=== PATIENT | female | born 1975 | race Caucasian/White ===

== ENCOUNTER 2016-11-24 06:33 | Day surgery (SDC) | payer OTHER ==
[2016-11-19 17:11] VITALS: BMI 22.3
[2016-11-24] MEDS ORDERED: KETOROLAC TROMETHAMINE 30 MG/1 ML VIAL ONE (07:30)
[2016-11-24] MEDS ORDERED: PROPOFOL 20 ML ONE ×3 (07:30)
[2016-11-24] MEDS ORDERED: ceFAZolin SODIUM 1 GM VIAL ONE (07:30)
[2016-11-24] MEDS ORDERED: DEXAMETHASONE SOD PHOSPHATE 4 MG/1 ML VIAL ONE (07:30)
[2016-11-24] MEDS ORDERED: SODIUM CHLORIDE 0.9% P/F 10 ML VIAL IJ ONE (07:30)
[2016-11-24] MEDS ORDERED: MIDAZOLAM HCL 2 MG/2 ML SINGLE DOSE VIAL ONE (07:31)
[2016-11-24] MEDS ORDERED: LIDOCAINE 1%/EPI 1:100000 (50 ML MULTI DOSE VIAL) ONE (07:34)
[2016-11-24] MEDS ORDERED: ePHEDrine SULFATE 50 MG/1 ML AMPULE ONE ×2 (07:40)
--- NOTE | 2016-11-24 08:03 | HP ---
History & Physical Update - History History: No Change - Physical Physical: No Change - Assessment Assessment: No Change - Plan Plan: No Change
[2016-11-24] MEDS ORDERED: LIDOCAINE 1%/EPI 1:100000 (20 ML MULTI DOSE VIAL) INF ONE (08:20)
--- NOTE | 2016-11-24 09:01 | OP ---
Operative Note - Note: Operative Date: 11/24/16 Pre-Operative Diagnosis: midback soft tissue mass Operation: Excision, midback soft tissue mass Findings: 1 cm cystic subcutaneous mass Post-Operative Diagnosis: Same as Pre-op Surgeon: Rusty Mccracken Anesthesiologist/COKE STILL CLEANER: Marco Antonio Trent Jr. Anesthesia: Local (with sedation), MAC Estimated Blood Loss (mls): 1 Operative Report Dictated: Yes
--- NOTE | 2016-11-24 09:08 | OP ---
DATE OF OPERATION: 11/24/2016 PROCEDURE: Excisional biopsy of mid-back soft tissue mass. PREOPERATIVE DIAGNOSIS: Mid-back soft tissue mass. POSTOPERATIVE DIAGNOSIS: Mid-back soft tissue mass. SURGEON: Rusty Mccracken MD ANESTHESIA: Local with sedation. FINDINGS ON PROCEDURE: This is a 41-year-old female who presents with a 1-cm mid-back midline soft tissue mass associated with pain or tenderness on pressure. So, patient was advised excisional biopsy of the mass and consent was obtained after discussing the risks, benefits, and alternatives of the procedure. Patient was brought to the operating room and placed in right lateral decubitus position. The operative site was prepped and draped in the usual sterile fashion. Intravenous sedation was given by anesthesia team. Using lidocaine 1% with epinephrine, field block anesthesia was administered. A 2 x 0.5 cm elliptical incision was made over the mass using scalpel blade No. 15 with resection carried down to the subcutaneous tissue. Further resection using combined Bovie cautery and IV scissors was done until the mass together with the ellipse of skin was completely excised. The wound edges were undermined about 0.5 cm on each side. The wound was then closed with interrupted Vicryl 3-0 sutures for the dermis and continuous Biosyn 4-0 suture for the subcuticular layer. The wound closure was reinforced with Steri-Strips, then covered with pressure dressing. The patient was transferred to the post-anesthesia care unit in satisfactory condition. ESTIMATED BLOOD LOSS: About 1 mL. WOUND CLASS: Clean. Avi [id number]
[2016-11-24] MEDS ORDERED: oxyCODONE HCL 5 MG TABLET PO PRN (09:31)
[2016-11-24] MEDS ORDERED: PROMETHAZINE HCL 25 MG/1 ML VIAL IVPUSH PRN (09:31)
[2016-11-24] MEDS ORDERED: ONDANSETRON 4 MG/2 ML VIAL IVPUSH PRN (09:31)
[2016-11-24 09:35] VITALS: TEMP 98
[2016-11-24 11:48] VITALS: BP 100/50; PULSE 70
--- NOTE | 2016-11-25 13:54 | PATH ---
Surgical Pathology Report Patient Name: ERIK CALI [facility]. Rec. #: [id number] /Age/Gender: 1975 (Age: 41) / F Account: [id number] Location: [facility] SURGICAL Taken: 11/24/2016 Received: 11/24/2016 Reported: 11/25/2016 Physicians: Rusty Mccracken M.D. Specimen(s) Received MASS OF MID UPPER BACK Clinical History Mid-upper back mass Final Diagnosis SKIN AND SOFT TISSUE, MID UPPER BACK, MASS, EXCISION: EPIDERMAL INCLUSION CYST. Electronically Signed Fracisco Oates M.D. Gross Description Received in formalin, labeled "mid upper back mass" is a 1.0 x 0.9 x 0.4 cm pierce-yellow soft tissue mass which is surfaced by a 1.0 x 0.2 cm pierce, elliptical, unremarkable portion of skin. The specimen is trisected and entirely submitted in one cassette. 11/24/201611/24/2016
== END 2016-11-24 11:00 | disposition home or self-care (01) ==
LOC: JASU-SURG 06:33
PROVIDERS: ATTEND Surgery
PROC: 0HB6XZZ Excision of Back Skin, External Approach (ICD-10-PCS; 2016-11-24)
PROC: 0JQ70ZZ Repair Back Subcutaneous Tissue and Fascia, Open Approach (ICD-10-PCS; principal; 2016-11-24 08:00)
DX: L72.0 Epidermal cyst (principal)
CPT/HCPCS: 84703; 88307-TC; 94760

== ENCOUNTER → 2017-03-09 | Emergency (ER) | payer OTHER ==
[2017-03-09 16:49] VITALS: TEMP 98.3; BMI 24.0
--- NOTE | 2017-03-09 16:49 | PDOC ---
Rapid Medical Evaluation Time Seen by Provider: 03/09/17 16:35 Medical Evaluation: Allergies Allergy/AdvReac Type Severity Reaction Status Date / Time No Known Drug Allergies Allergy Verified 11/24/16 06:49 I have performed a brief in-person evaluation of this patient. The patient presents with a chief complaint of: pain under left breast and epigastric area that is sharp x 4 days. Pertinent physical exam findings: Epigastric TTP I have ordered the following: UA/hcg The patient will proceed to the ED for further evaluation.
[2017-03-09 17:15] LABS: URINE APPEARANCE CLOUDY; URINE BILIRUBIN NEGATIVE (NEGATIVE); URINE COLOR YELLOW; URINE GLUCOSE (UA) NEGATIVE (NEGATIVE); URINE KETONE NEGATIVE (NEGATIVE); URINE LEUK ESTERASE NEGATIVE (NEGATIVE); URINE NITRITE NEGATIVE (NEGATIVE); URINE PROTEIN NEGATIVE (NEGATIVE); URINE UROBILINOGEN NEGATIVE E.U./dl (0.2-1.0)
[2017-03-09 17:52] LABS: URINE BLOOD 1+ (NEGATIVE)
[2017-03-09 17:59] LABS: BASOPHIL 0.6 % (0-2.0); EOSINOPHIL 1.1 % (0-4.5); MCH 30.4 pg (25.7-33.7); MCHC 32.7 g/dl (32.0-36.0); MEAN CELL VOLUME 92.9 fl (80-96); MEAN PLT VOLUME 8.7 fl (7.5-11.1); NEUTROPHILS 49.4 % (42.8-82.8); PLATELET COUNT 233 K/MM3 (134-434); RDW 14.2 % (11.6-15.6); WHITE BLOOD COUNT 5.5 K/mm3 (4.0-10.0)
[2017-03-09 18:07] LABS: URINE BACTERIA RARE /hpf (NONE SEEN); URINE RBC 1 /hpf (0-3); URINE WBC 2 /hpf (3-5)
[2017-03-09 18:15] LABS: ALBUMIN 3.9 g/dl (3.4-5.0); ANION GAP 8 (8-16); BILIRUBIN,TOTAL 0.2 mg/dL (0.2-1.0); CO2 29 mmol/L (21-32); CREATININE 0.8 mg/dL (0.55-1.02); GLUCOSE,RANDOM 94 mg/dL (74-106); SGOT/AST 222 U/L (15-37); SGPT/ALT 83 U/L (12-78); TOT PROT 7.2 g/dl (6.4-8.2)
[2017-03-09 18:16] LABS: ALK PHOS 46 U/L (45-117)
--- NOTE | 2017-03-09 19:31 | PDOC ---
History of Present Illness <Migdalia Yeboah Yessenia - Last Filed: 03/09/17 19:31> - General History Source: Patient Exam Limitations: No Limitations - History of Present Illness Initial Comments: 42 yo F with a PMHx of josé antonio gunn 14 years ago presents with constant, sharp epigastric pain for four days. Patient reports pain was sudden onset and has progressively gotten worse. Patient reports pain is exacerbated by lying down and movement and has no alleviating factors. Patient denies vomiting, diarrhea and constipation but endorses mild nausea and chills for one day. Patient also states pain is worse at night. Denies blood in stool. Patient also endorses mild lightheadedness and dizziness for four days. Denies chest pain. Patient also notes that the last four days shes been going to the bathroom more frequently. Patient just finished her period 2 days ago and states that it was normal. PCP: Anderson Diaz <Marsha Ferro - Last Filed: 03/09/17 20:36> - General Chief Complaint: Pain Stated Complaint: ABDOMINAL PAIN Time Seen by Provider: 03/09/17 16:35 Past History - Past Medical History Anemia: No Asthma: No Cancer: No Cardiac Disorders: No CVA: No COPD: No CHF: No Dementia: No Diabetes: No GI Disorders: No Disorders: No HTN: No Hypercholesterolemia: No Liver Disease: No Seizures: No Thyroid Disease: No - Surgical History Abdominal Surgery: Yes (ABDOMINOPLASTY) Appendectomy: No Cardiac Surgery: No Cholecystectomy: No Lung Surgery: No Neurologic Surgery: No Orthopedic Surgery: No - Psycho/Social/Smoking Cessation Hx Suicidal Ideation: No Smoking History: Never smoked Have you smoked in the past 12 months: No Information on smoking cessation initiated: No Hx Alcohol Use: Yes (SOCIAL) Drug/Substance Use Hx: No Substance Use Type: Alcohol Hx Substance Use Treatment: No <ObinnaJose Manuelangel Casas - Last Filed: 03/09/17 19:31> <Marsha Ferro - Last Filed: 03/09/17 20:36> - Past Medical History Allergies/Adverse Reactions: Allergies Allergy/AdvReac Type Severity Reaction Status Date / Time No Known Drug Allergies Allergy Verified 03/09/17 16:49 Home Medications: Ambulatory Orders Multivitamins [Tab-A-Vit -] 1 tab PO DAILY 11/19/16 Review of Systems - Review of Systems Able to Perform ROS?: Yes Comments:: CONSTITUTIONAL: +chills Absent: fever, diaphoresis, generalized weakness, malaise, loss of appetite HEENT: Absent: rhinorrhea, nasal congestion, throat pain, throat swelling, difficulty swallowing, mouth swelling, ear pain, eye pain, visual Changes CARDIOVASCULAR: +mild lightheadedness Absent: chest pain, syncope, palpitations , irregular heart rate, peripheral edema RESPIRATORY: Absent: cough, shortness of breath, dyspnea with exertion, orthopnea, wheezing, stridor, hemoptysis GASTROINTESTINAL: +Epigastric pain, mild nausea, Absent: abdominal distension, vomiting, diarrhea, constipation, melena, hematochezia GENITOURINARY: +frequency Absent: dysuria, urgency, hesitancy, hematuria, flank pain, genital pain MUSCULOSKELETAL: Absent: myalgia, arthralgia, joint swelling SKIN: Absent: rash , itching, pallor HEMATOLOGIC/IMMUNOLOGIC: Absent: easy bleeding, easy bruising, lymphadenopathy, frequent infections ENDOCRINE: Absent: unexplained weight gain, unexplained weight loss, heat intolerance, cold intolerance NEUROLOGIC: Absent: headache, focal weakness or paresthesia, dizziness, unsteady gait, seizure, mental status changes, bladder or bowel incontinence PSYCHIATRIC: Absent: anxiety, depression, suicidal or homicidal ideation, hallucination <Marsha Ferro - Last Filed: 03/09/17 20:36> *Physical Exam - Vital Signs Last Vital Signs Temp Pulse Resp BP Pulse Ox 98.3 F 75 18 138/84 98 03/09/17 16:45 03/09/17 16:45 03/09/17 16:45 03/09/17 16:45 03/09/17 16:45 <Migdalia Yeboah - Last Filed: 03/09/17 19:31> - Vital Signs Last Vital Signs Temp Pulse Resp BP Pulse Ox 98.3 F 72 20 132/78 100 03/09/17 16:45 03/09/17 19:36 03/09/17 19:36 03/09/17 19:36 03/09/17 19:36 - Physical Exam Comments: GENERAL: Well developed, well nourished. Awake and alert. No acute distress. HEENT: Normocephalic, atraumatic. PERRLA, EOMI. No conjunctival pallor. Sclera are non- icteric. Moist mucous membranes. Oropharynx is clear. NECK: Supple. Full ROM. No JVD. Carotid pulses 2+ and symmetric, without bruits. No thyromegaly. No lymphadenopathy. CARDIOVASCULAR: Regular rate and rhythm. No murmurs, rubs, or gallops. Distal pulses are 2+ and symmetric. PULMONARY: No evidence of respiratory distress. Lungs clear to auscultation bilaterally. No wheezing, rales or rhonchi. ABDOMINAL: Soft. Tenderness to epigastric region. Non-distended. No rebound or guarding. No organomegaly. Normoactive bowel sounds. MUSCULOSKELETAL Normal range of motion at all joints. No bony deformities or tenderness. No CVA tenderness. EXTREMITIES: No cyanosis. No clubbing. No edema. No calf tenderness. SKIN: Warm and dry. Normal capillary refill. No rashes. No jaundice. NEUROLOGICAL: Alert, awake, appropriate. Cranial nerves 2-12 intact. No deficits to light touch and temperature in face, upper extremities and lower extremities. No motor deficits in the in face, upper extremities and lower extremities. Normoreflexic in the upper and lower extremities. Normal speech. Toes are down- going bilaterally. Gait is normal without ataxia. PSYCHIATRIC: Cooperative. Good eye contact. Appropriate mood and affect. <Marsha Ferro - Last Filed: 03/09/17 20:36> ED Treatment Course - LABORATORY CBC & Chemistry Diagram: 03/09/17 17:44 03/09/17 17:44 - ADDITIONAL ORDERS Additional order review: Laboratory Results 03/09/17 03/09/17 17:44 16:48 Sodium 141 Potassium 3.8 Chloride 104 Carbon Dioxide 29 Anion Gap 8 BUN 10 Creatinine 0.8 Creat Clearance w eGFR > 60 Random Glucose 94 Calcium 9.0 Total Bilirubin 0.2 AST 222 H ALT 83 H Alkaline Phosphatase 46 Total Protein 7.2 Albumin 3.9 Lipase 164 Urine Color Yellow Urine Appearance Cloudy Urine pH 8.0 Urine Protein Negative Urine Glucose (UA) Negative Urine Ketones Negative Urine Blood 1+ H Urine Nitrite Negative Urine Bilirubin Negative Urine Urobilinogen Negative Ur Leukocyte Esterase Negative Urine RBC 1 Urine WBC 2 Ur Epithelial Cells Rare Urine Bacteria Rare Urine HCG, Qual Negative 03/09/17 17:44 RBC 4.34 MCV 92.9 MCHC 32.7 RDW 14.2 MPV 8.7 Neutrophils % 49.4 Lymphocytes % 41.2 H Monocytes % 7.7 Eosinophils % 1.1 Basophils % 0.6 - RADIOLOGY Radiology Studies Ordered: Category Date Time Status ABDOMEN US [US] Stat Ultrasound 03/09/17 17:13 Completed <Migdalia Yeboah - Last Filed: 03/09/17 19:31> - LABORATORY CBC & Chemistry Diagram: 03/09/17 17:44 03/09/17 17:44 - ADDITIONAL ORDERS Additional order review: Laboratory Results 03/09/17 03/09/17 17:44 16:48 Sodium 141 Potassium 3.8 Chloride 104 Carbon Dioxide 29 Anion Gap 8 BUN 10 Creatinine 0.8 Creat Clearance w eGFR > 60 Random Glucose 94 Calcium 9.0 Total Bilirubin 0.2 AST 222 H ALT 83 H Alkaline Phosphatase 46 Total Protein 7.2 Albumin 3.9 Lipase 164 Urine Color Yellow Urine Appearance Cloudy Urine pH 8.0 Urine Protein Negative Urine Glucose (UA) Negative Urine Ketones Negative Urine Blood 1+ H Urine Nitrite Negative Urine Bilirubin Negative Urine Urobilinogen Negative Ur Leukocyte Esterase Negative Urine RBC 1 Urine WBC 2 Ur Epithelial Cells Rare Urine Bacteria Rare Urine HCG, Qual Negative 03/09/17 17:44 RBC 4.34 MCV 92.9 MCHC 32.7 RDW 14.2 MPV 8.7 Neutrophils % 49.4 Lymphocytes % 41.2 H Monocytes % 7.7 Eosinophils % 1.1 Basophils % 0.6 <Marsha Ferro - Last Filed: 03/09/17 20:36> Medical Decision Making - Medical Decision Making 03/09/17 19:30 42-year-old female, slightly overweight, presents with 4 days of epigastric pain and tenderness to palpation. No vomiting, no fever, no chills Review of her CBC shows no leukocytosis, no anemia Review of her chemistry studies showed an elevated AST L today, but no elevated total bili Gallbladder ultrasound showed a contracted gallbladder and it was a very limited study Patient elected to go home and follow-up with her doctor Dr. Anderson Diaz. She will take her lab work and imaging study results with her Patient advised to avoid fatty or fried foods. Impression cholecystitis with limited ultrasound study <Migdalia Yeboah - Last Filed: 03/09/17 19:31> *DC/Admit/Observation/Transfer <Migdalia Yeboah - Last Filed: 03/09/17 19:31> - Attestations Scribe Attestion: Documentation prepared by Marsha Ferro, acting as medical office receptionist for Migdalia Yeboah MD/DO. <Marsha Ferro - Last Filed: 03/09/17 20:36> Diagnosis at time of Disposition: Epigastric abdominal pain, Elevated liver enzymes - Discharge Dispostion Disposition: HOME Condition at time of disposition: Stable - Referrals Referrals: Anderson Diaz MD [Primary Care Provider] - - Patient Instructions Printed Discharge Instructions: DI for Epigastric Pain Additional Instructions: please avoid fatty ,fried foods When you follow up with your doctor,please take your lab work and Ultrasound results with you If you develop fever,increasing pain,vomiting please return to the emergency department
[2017-03-09 19:37] VITALS: BP 132/78; PULSE 72
== END | disposition home or self-care (01) ==
LOC: JER 16:24
DX: R10.13 Epigastric pain (principal); R79.89 Other specified abnormal findings of blood chemistry
CPT/HCPCS: 36415; 76700-TC; 80053; 81003; 81015; 83690; 84703; 85025; 99282-25

== ENCOUNTER 2018-06-28 18:34 | Emergency (ER) | payer OTHER ==
[2018-06-28 18:53] VITALS: BP 135/84; PULSE 72; TEMP 98.6; BMI 23.6
--- NOTE | 2018-06-28 19:17 | PDOC ---
History of Present Illness - General History Source: Patient Exam Limitations: No Limitations <Varun Mejia - Last Filed: 06/28/18 20:14> - General History Source: Patient Exam Limitations: No Limitations - History of Present Illness Initial Comments: 06/28/18 20:26 The patient is a 43 year old female with no significant PMH who presents to the emergency department with right sided head pain since yesterday. The patient reports that she was at home when her head pain began in the morning yesterday. She describes her head pain as a worsening sharp constant pain. She states that the area is sensitive to touch but she feels the pain inside as well. The patient denies any head injury, photophobia, flashing lights. She states that she took tylenol and naproxen with no apparent relief. The patient denies any other symptoms. She denies any fever, chills, nausea, vomiting, diarrhea, constipation or urinary symptoms. She denies any chest pain, shortness of breath, or dizziness. The patient denies any other complaints. <Tayler Roberson - Last Filed: 06/28/18 20:27> - General Chief Complaint: Pain Stated Complaint: RIGHT POSTERIOR HEAD PAIN Time Seen by Provider: 06/28/18 18:39 Past History - Past Medical History Anemia: No Asthma: No Cancer: No Cardiac Disorders: No CVA: No COPD: No CHF: No Dementia: No Diabetes: No GI Disorders: No Disorders: No HTN: No Hypercholesterolemia: No Liver Disease: No Seizures: No Thyroid Disease: No - Surgical History Abdominal Surgery: Yes (ABDOMINOPLASTY) Appendectomy: No Cardiac Surgery: No Cholecystectomy: No Lung Surgery: No Neurologic Surgery: No Orthopedic Surgery: No - Suicide/Smoking/Psychosocial Hx Smoking History: Never smoked Have you smoked in the past 12 months: No Information on smoking cessation initiated: No Hx Alcohol Use: No Drug/Substance Use Hx: No Substance Use Type: None Hx Substance Use Treatment: No <Varun Mejia - Last Filed: 06/28/18 20:14> <Tayler Roberson - Last Filed: 06/28/18 20:27> - Past Medical History Allergies/Adverse Reactions: Allergies Allergy/AdvReac Type Severity Reaction Status Date / Time No Known Drug Allergies Allergy Verified 06/28/18 18:36 Home Medications: Ambulatory Orders Naproxen 500 mg PO BID PRN #20 tablet 06/28/18 Review of Systems - Review of Systems Able to Perform ROS?: Yes Comments:: 06/28/18 20:26 GENERAL/CONSTITUTIONAL: No fever or chills. No weakness. HEAD, EYES, EARS, NOSE AND THROAT: (+)right sided head pain. No change in vision. No ear pain or discharge. No sore throat. CARDIOVASCULAR: No chest pain or shortness of breath. RESPIRATORY: No cough, wheezing, or hemoptysis. GASTROINTESTINAL: No nausea, vomiting, diarrhea or constipation. GENITOURINARY: No dysuria, frequency, or change in urination. MUSCULOSKELETAL: No joint or muscle swelling or pain. No neck or back pain. SKIN: No rash NEUROLOGIC: No headache, vertigo, loss of consciousness, or change in strength/ sensation. ENDOCRINE: No increased thirst. No abnormal weight change. HEMATOLOGIC/LYMPHATIC: No anemia, easy bleeding, or history of blood clots. ALLERGIC/IMMUNOLOGIC: No hives or skin allergy. <Tayler Roberson - Last Filed: 06/28/18 20:27> *Physical Exam - Vital Signs Last Vital Signs Temp Pulse Resp BP Pulse Ox 98.6 F 72 16 135/84 100 06/28/18 18:35 06/28/18 18:35 06/28/18 18:35 06/28/18 18:35 06/28/18 18:35 <Varun Mejia - Last Filed: 06/28/18 20:14> - Vital Signs Last Vital Signs Temp Pulse Resp BP Pulse Ox 98.6 F 72 16 135/84 100 06/28/18 18:35 06/28/18 18:35 06/28/18 18:35 06/28/18 18:35 06/28/18 18:35 - Physical Exam Comments: 06/28/18 20:26 GENERAL: Awake, alert, and fully oriented, in no acute distress HEAD: (+)mild tenderness to right posterior scalp. No signs of trauma EYES: PERRLA, EOMI, sclera anicteric, conjunctiva clear ENT: Auricles normal inspection, hearing grossly normal, nares patent, oropharynx clear without exudates. Moist mucosa NECK: Normal ROM, supple, no lymphadenopathy, JVD, or masses EXTREMITIES: Normal range of motion, no edema. No clubbing or cyanosis. No cords, erythema, or tenderness NEUROLOGICAL: 5/5 strength intact. Cranial nerves II through XII grossly intact. Normal speech, normal gait SKIN: Warm, Dry, normal turgor, no rashes or lesions noted. <Tayler Roberson - Last Filed: 06/28/18 20:27> ED Treatment Course - ADDITIONAL ORDERS Additional order review: Laboratory Results 06/28/18 18:57 Urine HCG, Qual Negative - RADIOLOGY Radiology Studies Ordered: Category Date Time Status HEAD CT WITHOUT CONTRAST [CT] Stat CT Scan 06/28/18 18:49 Ordered <Varun Mejia - Last Filed: 06/28/18 20:14> - ADDITIONAL ORDERS Additional order review: Laboratory Results 06/28/18 18:57 Urine HCG, Qual Negative <Tayler Roberson - Last Filed: 06/28/18 20:27> Medical Decision Making - Medical Decision Making 06/28/18 19:15 A portion of this note was documented by scribe services under my direction. I have reviewed the details of the note, within reason, and agree with the documentation with the following case summary and management plan written by me. Patient treated in the ED. Nursing notes are reviewed and incorporated into the medical decision-making. Vital signs reviewed. Peripheral IV access obtained by the nurse, laboratory studies are drawn and sent, reviewed and interpreted by myself. Vital Signs Temp Pulse Resp BP Pulse Ox 98.6 F 72 16 135/84 100 06/28/18 18:35 06/28/18 18:35 06/28/18 18:35 06/28/18 18:35 06/28/18 18:35 43-year-old healthy female with no medical history presents with right posterior scalp pain since yesterday. Reported gradual onset of sharp pain reproducible palpation. Patient also developed a right-sided headache that is constant but with the Tylenol and naproxen. She denies any neurological deficits. Denies any recent illnesses, fevers, chills. Denies neck stiffness or pain. She has no family history or personal history of migraines or headache history. Came in because she was concerned about her headache. We'll obtain head CT to rule out intracranial pathology per for some headache. However, suspect this is likely secondary to some mild scalp information. There is no evidence of infection. I advised patient if the head CT is negative, that she should try NSAIDs for next several days and follow up with a neurologist. 06/28/18 20:[address] negative. Pt feels reassurred. She will follow up with a neurologist. I discussed the physical exam findings, ancillary test results and final diagnoses with the patient. I answered all of the patient's questions. The patient was satisfied with the care received and felt comfortable with the discharge plan and treatment plan. The patient will call their primary care physician within 24 hours to arrange follow-up and will return to the Emergency Department with any new, persistant or worsening symptoms. <Varun Mejia - Last Filed: 06/28/18 20:14> *DC/Admit/Observation/Transfer - Discharge Dispostion Decision to Admit order: No <Varun Mejia - Last Filed: 06/28/18 20:14> - Attestations Scribe Attestion: 06/28/18 20:26 Documentation prepared by Tayler Roberson, acting as director medical safety for Varun Mejia MD. <Tayler Roberson - Last Filed: 06/28/18 20:27> Diagnosis at time of Disposition: Headache Qualifiers: Headache type: unspecified Headache chronicity pattern: acute headache Intractability: not intractable Qualified Code(s): R51 - Headache - Discharge Dispostion Disposition: HOME Condition at time of disposition: Stable - Prescriptions Prescriptions: Naproxen 500 mg PO BID PRN #20 tablet PRN Reason: Pain - Referrals Referrals: Sudeep Joseph MD [Staff Physician] - Liam Huerta MD [Staff Physician] - Marquez Estrada DO [Staff Physician] - - Patient Instructions Printed Discharge Instructions: DI for Headache Additional Instructions: Your CT head is negative for acute findings. Take 500 mg naproxen every 12 hours as needed for headache. Please follow up with a neurologist. Call to schedule an appointment.
[2018-06-28] MEDS ORDERED: NAPROXEN 500 MG TABLET (FP) PO ONE (20:18)
[2018-06-28] MEDS ORDERED: IBUPROFEN 600 MG TABLET (FP) PO ONE ×2 (20:24→20:45)
== END 2018-06-28 20:49 | disposition home or self-care (01) ==
LOC: FER 18:34
DX: R51 Headache (principal)
CPT/HCPCS: 70450-TC; 84703; 99281-25

== ENCOUNTER 2018-11-17 16:47 | Emergency (ER) | payer OTHER ==
[2018-11-17 16:56] VITALS: BP 130/63; PULSE 79; TEMP 98.2; BMI 24.3
--- NOTE | 2018-11-17 16:59 | PDOC ---
Rapid Medical Evaluation Chief Complaint: Pain, Acute Time Seen by Provider: 11/17/18 16:55 Medical Evaluation: Allergies Allergy/AdvReac Type Severity Reaction Status Date / Time No Known Drug Allergies Allergy Verified 11/17/18 16:53 11/17/18 16:55 I have performed a brief in-person evaluation of this patient. The patient presents with a chief complaint of: Patient present with complains of pain to left shoulder, left elbow and left knee s/p slip and fall on ice today. Denies hitting head or LOC Pertinent physical exam findings: mild tenderness to anterior patella of left knee, AC joint of left shoulder and olecranon of left elbow. I have ordered the following: x-ray of left knee, elbow and shoulder The patient will proceed to the ED for further evaluation. Discharge Disposition - Diagnosis Fall Qualifiers: Encounter type: initial encounter Qualified Code(s): W19.XXXA - Unspecified fall, initial encounter Left knee injury Qualifiers: Encounter type: initial encounter Qualified Code(s): S89.92XA - Unspecified injury of left lower leg, initial encounter Injury of left shoulder Qualifiers: Encounter type: initial encounter Qualified Code(s): S49.92XA - Unspecified injury of left shoulder and upper arm, initial encounter - Discharge Dispostion Condition at time of disposition: Stable - Referrals - Patient Instructions - Post Discharge Activity
--- NOTE | 2018-11-17 18:27 | PDOC ---
History of Present Illness - General Chief Complaint: Pain, Acute Stated Complaint: FALL Time Seen by Provider: 11/17/18 16:55 History Source: Patient Exam Limitations: No Limitations - History of Present Illness Initial Comments: 11/17/18 18:26 CHIEF COMPLAINT: Fall HISTORY OF PRESENT ILLNESS: This is an otherwise healthy 43-year-old female who presents for evaluation of multiple injuries after slipping on ice and falling today. She reports that she fell onto her left shoulder and knee. She denies head strike. She denies neck pain. She is ambulatory in the emergency department. REVIEW OF SYSTEMS: GENERAL/CONSTITUTIONAL: No fever or chills. No weakness. No weight change. HEAD, EYES, EARS, NOSE AND THROAT: No change in vision. No ear pain or discharge. No sore throat. CARDIOVASCULAR: No chest pain or palpitations. RESPIRATORY: No cough, wheezing, or shortness of breath. GASTROINTESTINAL: No nausea, vomiting, diarrhea or constipation. GENITOURINARY: No dysuria, frequency, or change in urination. MUSCULOSKELETAL: Left shoulder, elbow, and knee pain. No neck or back pain. SKIN: No rash or easy bruising. NEUROLOGIC: No headache, vertigo, loss of consciousness, or loss of sensation. PSYCHIATRIC: No depression or anxiety. ENDOCRINE: No increased thirst. No abnormal weight change. HEMATOLOGIC/LYMPHATIC: No anemia, easy bleeding, or history of blood clots. ALLERGIC/IMMUNOLOGIC: No hives or skin allergy. No latex allergy. PHYSICAL EXAM: GENERAL: The patient is awake, alert, and fully oriented, in no acute distress. HEAD: Normal with no signs of trauma. ENT: Pupils equal, round and reactive to light, extraocular movements intact, sclera anicteric, conjunctiva clear. Neck supple. LUNGS: Clear to auscultation bilaterally. Normal excursion. No respiratory distress or use of accessory muscles. CV: RRR, S1/S2, no MRG. Cap refill < 2 sec. ABDOMEN: Soft, non-distended, non-tender. EXTREMITIES: Mild left patellar tenderness. Tenderness over left olecranon process. Left shoulder tenderness, worse with elevation/abduction of arm. NEUROLOGICAL: Normal speech, normal gait. CN II-XII grossly intact. PSYCH: Normal mood, normal affect. SKIN: Warm, dry, normal turgor, no rashes or lesions noted. Past History - Past Medical History Allergies/Adverse Reactions: Allergies Allergy/AdvReac Type Severity Reaction Status Date / Time No Known Drug Allergies Allergy Verified 11/17/18 16:53 Home Medications: Ambulatory Orders Naproxen 500 mg PO BID PRN #20 tablet 06/28/18 Anemia: No Asthma: No Cancer: No Cardiac Disorders: No CVA: No COPD: No CHF: No Dementia: No Diabetes: No GI Disorders: No Disorders: No HTN: No Hypercholesterolemia: No Liver Disease: No Seizures: No Thyroid Disease: No - Surgical History Abdominal Surgery: Yes (ABDOMINOPLASTY) Appendectomy: No Cardiac Surgery: No Cholecystectomy: No Lung Surgery: No Neurologic Surgery: No Orthopedic Surgery: No - Immunization History Immunization Up to Date: Yes - Suicide/Smoking/Psychosocial Hx Smoking History: Never smoked Have you smoked in the past 12 months: No Hx Alcohol Use: No Drug/Substance Use Hx: No Substance Use Type: None Hx Substance Use Treatment: No *Physical Exam - Vital Signs Last Vital Signs Temp Pulse Resp BP Pulse Ox 98.2 F 79 16 130/63 98 11/17/18 16:53 11/17/18 16:53 11/17/18 16:53 11/17/18 16:53 11/17/18 16:53 Moderate Sedation - Procedure Monitoring Vital Signs: Procedure Monitoring Vital Signs Temperature 98.2 F 11/17/18 16:53 Pulse Rate 79 11/17/18 16:53 Respiratory Rate 16 11/17/18 16:53 Blood Pressure 130/63 11/17/18 16:53 O2 Sat by Pulse Oximetry (%) 98 11/17/18 16:53 Medical Decision Making - Medical Decision Making 11/17/18 18:42 A/P: 43-year-old female with multiple injuries following a slip and fall on the ice today. 1. Ibuprofen 600 mg for pain 2. X-rays left elbow, shoulder, and knee 3. Reevaluate 11/17/18 20:20 Xray wet reads: no acute process. Will dc with ibuprofen, orthopedic followup as needed. Return precautions reviewed. *DC/Admit/Observation/Transfer Diagnosis at time of Disposition: Fall Qualifiers: Encounter type: initial encounter Qualified Code(s): W19.XXXA - Unspecified fall, initial encounter Left knee injury Qualifiers: Encounter type: initial encounter Qualified Code(s): S89.92XA - Unspecified injury of left lower leg, initial encounter Injury of left shoulder Qualifiers: Encounter type: initial encounter Qualified Code(s): S49.92XA - Unspecified injury of left shoulder and upper arm, initial encounter Contusion of elbow, left Qualifiers: Encounter type: initial encounter Qualified Code(s): S50.02XA - Contusion of left elbow, initial encounter - Discharge Dispostion Disposition: HOME Condition at time of disposition: Stable Decision to Admit order: No - Referrals Referrals: Lakhwinder Atwood DO [Staff Physician] - Call tomorrow (Orthopedics if symptoms persist) - Patient Instructions Printed Discharge Instructions: DI for Musculoskeletal Pain Additional Instructions: -Rest and apply ice to the painful areas -Take ibuprofen 600mg (3 tablets) every 6 hours with food for no longer than one week -You will receive a phone call regarding your official xray results tomorrow -Return here for any new or concerning symptoms - Post Discharge Activity Forms/Work/School Notes: Back to Work
[2018-11-17] MEDS ORDERED: IBUPROFEN 600 MG TABLET (FP) PO ONE ×2 (18:34→18:38)
== END 2018-11-17 20:29 | disposition home or self-care (01) ==
LOC: JERFT 16:47
DX: S50.02XA Contusion of left elbow, initial encounter (principal); M25.512 Pain in left shoulder; M25.562 Pain in left knee; W00.2XXA Other fall from one level to another due to ice and snow, initial encounter; Y93.89 Activity, other specified; Y92.89 Other specified places as the place of occurrence of the external cause; Y99.8 Other external cause status
CPT/HCPCS: 73030-TC-LT-FY; 73070-TC-LT-FY; 73562-TC-LT-FY; 99281-25

== ENCOUNTER 2019-01-14 18:42 | Emergency (ER) | payer OTHER ==
[2019-01-14 18:52] VITALS: BP 133/92; PULSE 83; TEMP 98.3; BMI 24.0
--- NOTE | 2019-01-14 19:08 | PDOC ---
History of Present Illness - General History Source: Patient Exam Limitations: No Limitations - History of Present Illness Initial Comments: 01/14/19 19:15 The patient is a 43-year-old female with no reported past medical history presents to the emergency department with L. knee pain. The patient reports on 11/17 she suffered a fall, injuring the left knee, and is scheduled for an arthroscopy with Dr. Love in 2 weeks. The patient presents with pain to the left knee. The patient reports shes been taking Tylenol for the pain, without relief. The patient reports she finished her pain medication prescription. The patient reports she uses a knee immobilizer on the knee. 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 Allergies: NKDA Surgical history: None reported PCP: Dr. Aquilino Diaz. <Columba Freire - Last Filed: 01/14/19 19:15> - General History Source: Patient Exam Limitations: No Limitations <Cathy Segundo - Last Filed: 01/14/19 20:32> - General Chief Complaint: Pain Stated Complaint: LEFT KNEE PAIN Time Seen by Provider: 01/14/19 19:07 Past History <Columba Freire - Last Filed: 01/14/19 19:15> - Past Medical History Anemia: No Asthma: No Cancer: No Cardiac Disorders: No CVA: No COPD: No CHF: No Dementia: No Diabetes: No GI Disorders: No Disorders: No HTN: No Hypercholesterolemia: No Liver Disease: No Seizures: No Thyroid Disease: No - Surgical History Abdominal Surgery: Yes (ABDOMINOPLASTY) Appendectomy: No Cardiac Surgery: No Cholecystectomy: No Lung Surgery: No Neurologic Surgery: No Orthopedic Surgery: No - Immunization History Immunization Up to Date: Yes - Suicide/Smoking/Psychosocial Hx Smoking History: Never smoked Have you smoked in the past 12 months: No Information on smoking cessation initiated: No Hx Alcohol Use: No Drug/Substance Use Hx: No Substance Use Type: None Hx Substance Use Treatment: No <Cathy Segundo - Last Filed: 01/14/19 20:32> - Past Medical History Allergies/Adverse Reactions: Allergies Allergy/AdvReac Type Severity Reaction Status Date / Time No Known Drug Allergies Allergy Verified 01/14/19 18:43 Home Medications: Ambulatory Orders Naproxen 500 mg PO BID PRN #20 tablet 06/28/18 Acetaminophen [Tylenol] 650 mg PO PRN PRN 01/14/19 Lidocaine 5% Patch [Lidoderm Patch -] 1 patch TP DAILY PRN #30 patch 01/14/19 Naproxen Sodium 220 mg PO BID PRN #30 tablet 01/14/19 traMADol HCL [Ultram] 50 mg PO BID #8 tablet MDD 2 01/14/19 Review of Systems - Review of Systems Able to Perform ROS?: Yes Comments:: 01/14/19 19:15 Constitutional - Pt denies Fever, Chills, weakness, HEENT: denies vision changes, sore throat Respiratory: Denies cough, sob, hemoptysis Cardiac: denies chest pain, palpitations, lightheadedness, leg swelling Abd/GI: denies abd pain, nausea, vomiting, blood per rectum, melena, diarrhea : denies dysuria, frequency, discharge Musculoskeletal - +left knee pain. denies back pain, joint swelling skin - denies bruising, erythema, rash neurological: denies headache, numbness, focal weakness, tingling, ataxia, weakness hematologic: denies anemia, easy bruising, easy bleeding <Columba Freire - Last Filed: 01/14/19 19:15> *Physical Exam - Vital Signs Last Vital Signs Temp Pulse Resp BP Pulse Ox 98.3 F 83 20 133/92 97 01/14/19 18:43 01/14/19 18:43 01/14/19 18:43 01/14/19 18:43 01/14/19 18:43 - Physical Exam Comments: 01/14/19 19:15 GENERAL: The patient is in no acute distress. ENT: Ears normal, nares patent, oropharynx clear without exudates. Moist mucous membranes. NECK: Normal range of motion, supple, no nuchal rigidity LUNGS: Breath sounds equal, clear to auscultation bilaterally. No wheezes, and no crackles. HEART: Regular rate and rhythm, normal S1 and S2 without murmur, rub or gallop. ABDOMEN: Soft, nontender, normoactive bowel sounds. No guarding, no rebound. No masses palpable. EXTREMITIES: +L. Knee tenderness to palpation, able to range and ambulate, no swelling or bruising. 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 who presents with knee pain Pt s/p mechanical fall in November while at work Sustained left knee injury at that time which has been evaluated by MRI ( outpatient) Pt is pending a surgical intervention in [address] Love She states that her knee has been more painful because she 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 <Columba Freire - Last Filed: 01/14/19 19:15> - Discharge Dispostion Decision to Admit order: No <Cathy Segundo - Last Filed: 01/14/19 20:32> Diagnosis at time of Disposition: Left knee injury Qualifiers: Encounter type: subsequent encounter Qualified Code(s): S89.92XD - Unspecified injury of left lower leg, subsequent encounter - Discharge Dispostion Disposition: HOME Condition at time of disposition: Stable - Prescriptions Prescriptions: Naproxen Sodium 220 mg PO BID PRN #30 tablet PRN Reason: Pain traMADol HCL [Ultram] 50 mg PO BID #8 tablet MDD 2 - Referrals Referrals: Anderson Diaz MD [Primary Care Provider] - - Patient Instructions Printed Discharge Instructions: DI for Knee Pain Additional Instructions: Ms. Villareal, Thank you for coming in to the ER today best of luck on your surgery Please be sure to follow up with dr Diaz in the office Return to the ER for any other concerns or complaints - Post Discharge Activity Forms/Work/School Notes: Back to Work
== END 2019-01-14 19:51 | disposition home or self-care (01) ==
LOC: FER 18:42 → SUPCPDRO 18:42 → FER 19:51
DX: S89.92XA Unspecified injury of left lower leg, initial encounter (principal); X58.XXXA Exposure to other specified factors, initial encounter; Y93.89 Activity, other specified; Y92.89 Other specified places as the place of occurrence of the external cause
CPT/HCPCS: 99281-25

== ENCOUNTER 2021-04-14 05:24 | Day surgery (SDC) | payer OTHER ==
[2021-04-11 11:58] VITALS: BMI 23.6
[2021-04-14] MEDS ORDERED: LIDOCAINE HCL/PF 2% SDV 5ML VIAL ONE (08:02)
[2021-04-14] MEDS ORDERED: MIDAZOLAM HCL 2 MG/2 ML SINGLE DOSE VIAL ONE (08:02)
[2021-04-14] MEDS ORDERED: ROCURONIUM BROMIDE 50 MG/5 ML SYRINGE ONE (08:02)
[2021-04-14] MEDS ORDERED: PROPOFOL 20 ML ONE (08:02)
[2021-04-14] MEDS ORDERED: ceFAZolin SODIUM 1 GM VIAL IVPB ONE (08:30)
[2021-04-14] MEDS ORDERED: KETOROLAC TROMETHAMINE 30 MG/1 ML VIAL ONE (08:44)
[2021-04-14] MEDS ORDERED: DEXAMETHASONE SOD PHOSPHATE 4 MG/1 ML VIAL ONE ×2 (08:44→10:53)
[2021-04-14] MEDS ORDERED: ceFAZolin SODIUM 1 GM VIAL ONE (08:44)
[2021-04-14] MEDS ORDERED: METHYLENE BLUE 50 MG/10 ML AMPUL ONE (09:25)
[2021-04-14] MEDS ORDERED: ONDANSETRON 4 MG/2 ML VIAL IVPUSH PRN (09:53)
[2021-04-14] MEDS ORDERED: CEFAZOLIN 2 GM/D5W 2 GM/50 ML ML IVPB SCH ×2 (10:00→16:30)
[2021-04-14] MEDS ORDERED: BUPIVACAINE HCL/PF 0.5% (5MG/ML) 10 ML VIAL IJ ONE (10:55)
[2021-04-14] MEDS ORDERED: IBUPROFEN 600 MG TABLET (FP) PO PRN (11:27)
[2021-04-14] MEDS ORDERED: ACETAMINOPHEN 325 MG TABLET (FP) PO PRN (11:27)
[2021-04-14] MEDS ORDERED: oxyCODONE HCL 5 MG TABLET PO PRN (11:27)
[2021-04-14] MEDS ORDERED: IBUPROFEN 800 MG/8 ML IJ IVPB PRN (11:29)
[2021-04-14] MEDS: LACTATED RINGERS SOLUTION 1,000 ML IV SCH (12:00)
[2021-04-14] MEDS: ACETAMINOPHEN 1000 MG/100 ML VIAL (NON FORMULARY) IVPB PRN ×2 (13:51→21:07)
[2021-04-14] MEDS: CEFAZOLIN 2 GM/D5W 2 GM/50 ML ML IVPB SCH (17:18)
[2021-04-14] MEDS: oxyCODONE HCL 5 MG TABLET PO PRN (23:13)
[2021-04-15] MEDS: CEFAZOLIN 2 GM/D5W 2 GM/50 ML ML IVPB SCH (01:21)
[2021-04-15] MEDS: LACTATED RINGERS SOLUTION 1,000 ML IV SCH (05:20)
[2021-04-15] MEDS: oxyCODONE HCL 5 MG TABLET PO PRN (05:37)
[2021-04-15 09:04] VITALS: BP 101/63; PULSE 80; TEMP 98.7
[2021-04-15 09:24] LABS: HEMATOCRIT 33.3 % (32.4-45.2); MCH 29.6 pg (25.7-33.7); MCHC 33.1 g/dl (32.0-36.0); MEAN CELL VOLUME 89.4 fl (80-96); MEAN PLT VOLUME 8.3 fl (7.5-11.1); PLATELET COUNT 224 10^3/uL (134-434); RBC 3.73 M/mm3 (3.60-5.2); RDW 15.2 % (11.6-15.6); WHITE BLOOD COUNT 7.2 K/mm3 (4.0-10.0)
== END 2021-04-15 13:35 | disposition home or self-care (01) ==
LOC: J2C 05:24 → UNDOADMIN 05:24 → JASUSAT 05:24 → EDSTATUS 08:00 → J2C 13:33 → J3W 13:33 → JASUSAT 04-15 13:35
PROVIDERS: ATTEND Obstetrics & Gynecology
PROC: 0UT74ZZ Resection of Bilateral Fallopian Tubes, Percutaneous Endoscopic Approach (ICD-10-PCS; 2021-04-14)
PROC: 0UB54ZZ Excision of Right Fallopian Tube, Percutaneous Endoscopic Approach (ICD-10-PCS; 2021-04-14)
PROC: 0UT94ZZ Resection of Uterus, Percutaneous Endoscopic Approach (ICD-10-PCS; principal; 2021-04-14 08:00)
DX: D25.9 Leiomyoma of uterus, unspecified (principal); N92.1 Excessive and frequent menstruation with irregular cycle
CPT/HCPCS: 36415; 81025; 85027; 88302-TC; 88304-TC; 88307-TC; 94010; 94760; J0131; Q9968